=== PATIENT | female | born 1965 ===

== ENCOUNTER 2017-01-15 06:33 | Emergency (ER) | payer MEDICAID ==
[2017-01-15 06:38] VITALS: O2SAT 96
[2017-01-15] MEDS ORDERED: Oxycodone/Acetaminophen 5/325 mg Tab PO STA (07:39)
[2017-01-15] MEDS ORDERED: Lidocaine 5% Patch TD STA (07:39)
[2017-01-15] MEDS ORDERED: Lidocaine 5% Patch TD ONE (07:49)
[2017-01-15] MEDS ORDERED: Oxycodone/Acetaminophen 5/325 mg Tab ONE (07:49)
--- NOTE | 2017-01-15 07:54 | C.PDOC ---
History Of Present Illness <Prema Marcano - Last Filed: 01/15/17 12:13> <Donna Mcneillerie - Last Filed: 01/15/17 18:36> 51 yr old female presents to the ER with complaints of low back pain which radiates to right buttock and posterior right leg for the past 5 days. Patient states she was bending over to do some work when the pain started. Patient reports history of sciatica but states the pain is worse then usual. Patient denies injury or trauma, chest pain, SOB, abdominal pain, diarrhea, constipation , dysuria, incontinence, weakness or numbness. (Catarina Mcneill) <Prema Marcano - Last Filed: 01/15/17 12:13> History Per: Patient History/Exam Limitations: no limitations Onset/Duration Of Symptoms: Days (5) Current Symptoms Are (Timing): Still Present <Donna Mcneillerie - Last Filed: 01/15/17 18:36> Time Seen by Provider: 01/15/17 07:22 Chief Complaint (Nursing): Back Pain Past Medical History Reviewed: Historical Data, Nursing Documentation, Vital Signs - Medical History PMH: Arthritis, Hypercholesterolemia Family History: States: No Known Family Hx - Social History Hx Alcohol Use: Yes Hx Substance Use: No - Immunization History Hx Tetanus Toxoid Vaccination: No Hx Influenza Vaccination: No Hx Pneumococcal Vaccination: No <Donna Mcneillerie - Last Filed: 01/15/17 18:36> Vital Signs: Last Vital Signs Temp 98 F 01/15/17 11:15 Pulse 70 01/15/17 11:15 Resp 16 01/15/17 11:15 BP 137/74 01/15/17 11:15 Pulse Ox 96 01/15/17 14:34 Review Of Systems Except As Marked, All Systems Reviewed And Found Negative. Cardiovascular: Negative for: Chest Pain Respiratory: Negative for: Shortness of Breath Gastrointestinal: Negative for: Abdominal Pain, Diarrhea, Constipation Genitourinary: Negative for: Dysuria, Incontinence Musculoskeletal: Positive for: Back Pain (Low back pain ) Neurological: Negative for: Weakness, Numbness <AngelCatarina moser - Last Filed: 01/15/17 18:36> Physical Exam - Physical Exam Appears: Well, Non-toxic, No Acute Distress Skin: Warm, Dry, No Rash Head: Atraumatic, Normacephalic Neck: Normal, Normal ROM, Supple Chest: Symmetrical, No Tenderness Cardiovascular: Rhythm Regular, No Murmur Respiratory: Normal Breath Sounds, No Rales, No Rhonchi, No Wheezing Back: Straight Leg Raising (+ at 20 degree), Other ((+) Tender in the low back. ) Extremity: Tenderness (Right buttock. Posterior right leg. ), Calf Tenderness ( Mild right calf tenderness. ) Pulses: Left Dorsalis Pedis: Normal, Right Dorsalis Pedis: Normal Neurological/Psych: Oriented x3, Normal Speech, Normal Motor <Catarina Mcneill - Last Filed: 01/15/17 18:36> ED Course And Treatment - Laboratory Results Result Diagrams: 01/15/17 10:04 01/15/17 10:04 <Prema Marcano - Last Filed: 01/15/17 12:13> - Laboratory Results Result Diagrams: 01/15/17 10:04 01/15/17 10:04 O2 Sat by Pulse Oximetry: 96 (RA) Pulse Ox Interpretation: Normal - Other Rad X-Ray - LS Spine X-Ray: Viewed By Me, Read By Radiologist Interpretation: PROCEDURE: Radiographs of the Lumbar Spine. HISTORY: pain. COMPARISON: No prior. FINDINGS: BONES: Normal alignment. No listhesis. No fracture. DISC SPACES: Unremarkable. OTHER FINDINGS: A threading head type needle approximately 5 cm in length and 1 mm or less in width projects over the left lower quadrant and left iliac bone at the mid to inferior left SI joint level. The vertebral body heights are maintained. Trace endplate spurring throughout the thoracolumbar spine -visualize is noted canal appear shallow on the lateral view. Possibility of bilateral spondylolysis at L5 is not excluded based on the frontal view. No gross subluxation suggested the L5-S1 disc space is shallow. Atherosclerotic vascular calcifications are suggested at the L3-4 level. IMPRESSION: Foreign body as detailed above. No vertebral body fractures and mild degenerative changes in other findings as above. Comments: If further evaluation for the more precise position of the needle is needed and to exclude any free air ,consider CT of the abdomen and pelvis without IV or oral contrast. Follow-up recommended - CT Scan/US CT - Abd & Pelvis Other Rad Studies (CT/US): Read By Radiologist, Radiology Report Reviewed CT/US Interpretation: ADDENDUM: No evidence of definite free air or perforation. Findings discussed with ANIBAL Mcneill on 01/15/17 at 12:31 p.m. [ Addendum Report Added by Angelia Whitfield MD at 01/15/2017 12:32:05 ]. PROCEDURE: CT Abdomen and Pelvis with contrast. HISTORY: FB (needle) in the RLQ. COMPARISON: None available. TECHNIQUE: Contrast dose: 100 cc Visipaque 320. Radiation dose: Total exam DLP = 300.80 mGy-cm. This CT exam was performed using one or more of the following dose reduction techniques: Automated exposure control, adjustment of the mA and/or kV according to patient size, and/or use of iterative reconstruction technique. FINDINGS: LOWER THORAX : No visible consolidation, pleural effusion, or pneumothorax. LIVER: Hypoattenuation of the liver compatible with hepatic steatosis. GALLBLADDER AND BILE DUCTS: Unremarkable. PANCREAS: Unremarkable. SPLEEN: Unremarkable. ADRENALS: Unremarkable. KIDNEYS AND URETERS: The kidneys enhance symmetrically. No hydronephrosis or obstructing calculus identified. VASCULATURE: No aortic aneurysm. BOWEL: Stomach is nondistended. Lack of oral contrast limits evaluation for bowel pathology. Bowel loops appear within normal limits of caliber without evidence of obstruction. APPENDIX: The appendix appears within normal limits of caliber. No secondary signs of acute appendicitis. PERITONEUM: No significant free fluid. No definite free air. LYMPH NODES: No bulky adenopathy identified. BLADDER: Under distended urinary bladder limits evaluation. REPRODUCTIVE: The uterus is present. BONES : Degenerative changes. L5-S1 intervertebral disc space narrowing and vacuum disc phenomenon. OTHER FINDINGS: 4.1 x 0.3 cm linear foreign body identified within the left lower quadrant (coronal image 46). Tiny fat containing umbilical hernia. IMPRESSION: 4.1 x 0.3 cm linear radiopaque foreign body identified within the left lower quadrant. Hepatic steatosis. Additional incidental findings as above. Dopplar Other Rad Studies (CT/US): Interpreted By Me, Read By Radiologist CT/US Interpretation: Negative for DVT. <Catarina Mcneill - Last Filed: 01/15/17 18:36> Supervising Attending Note - Supervising Attending Note The Documented history was done by the: Physician Visualizer The documented physical exam was done by the: Physician Visualizer The documented procedures were done by the: Physician Visualizer - Attestation: I have personally seen and examined this patient.: Yes I have fully participated in the care of the patient.: Yes I have reviewed all pertinent clinical information: Yes <Prema Marcano - Last Filed: 01/15/17 12:13> <Donna Mcneillerie - Last Filed: 01/15/17 18:36> - Notes: Notes:: R SCIATICA PAIN SINCE 3-4 DAYS. EXAM ABOVE. LS SPINE REVIEWED BY ME +SEWING NEEDLE INTRAABD FB NOTED. CT, SURGERY (Prema Marcano) Medical Decision Making <Prema Marcano - Last Filed: 01/15/17 12:13> <Catarina Mcneill - Last Filed: 01/15/17 18:36> Medical Decision Making: PLAN: * CT - Abd & Pelvis * X-Ray - LS Spine * Dopplar * CBC * BMP * Lidoderm TD * Percocet PO * Valium PO * Toradol IM NOTE: * 12:44 - Dr. Faustin was called, states will call back shortly. * 13:26 - Patient signed out AMA. Dr. Faustin never returned the call. * 18:00 - call Dr. Faustin again, he sts patient should follow up in his office. * 18:10 - called patient cell phone ([phone]), spoke with patient, gave her contact info of Dr. Faustin and instructed her to f/u with him GOMEZ. ( Catarina Mcneill) Disposition <Prema Marcano - Last Filed: 01/15/17 12:13> - Disposition Disposition Time: 13:05 <Catarina Mcneill - Last Filed: 01/15/17 18:36> - Disposition Disposition: AGAINST MEDICAL ADVICE Condition: STABLE Additional Instructions: You are leaving against medical advise. We were unable to discuss your case with the General surgeon evaluation manager. Please follow up with your PMD as soon as possible and you will need to see general call center specialist for consultation. Return to ED immediately if feel worse. Instructions: Sciatica (ED) - Clinical Impression Clinical Impression: Sciatica, Foreign body <Prema Marcano - Last Filed: 01/15/17 12:13> - PA / CRM SPECIALIST / Resident Statement MD/DO has reviewed & agrees with the documentation as recorded. - Scribe Statement The provider has reviewed the documentation as recorded by the Scribe <Catarina Mcneill - Last Filed: 01/15/17 18:36> - Scribe Statement Sana Villalpando All medical record entries made by the Scribe were at my direction and personally dictated by me. I have reviewed the chart and agree that the record accurately reflects my personal performance of the history, physical exam, medical decision making, and the department course for this patient. I have also personally directed, reviewed, and agree with the discharge instructions and disposition. (Catarina Mcneill)
[2017-01-15 10:10] LABS: BASO # 0.2 K/uL (0.0-0.2); BASO % 1.9 % (0.0-2.0); EOS # 0.3 K/uL (0.0-0.7); EOS % 2.2 % (0.0-4.0); HEMATOCRIT 40.2 % (34.0-47.0); LYMPH # 3.1 K/uL (1.0-4.3); LYMPH % 27.3 % (20.0-40.0); MEAN CORPUSCULAR HEMOGLOBIN 29.2 pg (27.0-31.0); MEAN CORPUSCULAR HGB CONC 33.1 g/dL (33.0-37.0); MONO # 0.5 K/uL (0.0-0.8); MONO % 4.5 % (0.0-10.0); RED CELL DISTRIBUTION WIDTH 12.4 % (11.5-14.5); WHITE BLOOD COUNT 11.3 K/uL (4.8-10.8)
[2017-01-15 10:25] LABS: CHLORIDE 101 mmol/L (98-107); POTASSIUM 4.4 mmol/L (3.6-5.2); SODIUM 137 mmol/L (132-148)
[2017-01-15 10:28] LABS: BLOOD UREA NITROGEN 13 mg/dL (7-17); CARBON DIOXIDE 22 mmol/L (22-30); GFR AFRICAN-AMERICAN > 60
[2017-01-15 10:29] LABS: CALCIUM 8.2 mg/dl (8.6-10.4); GLUCOSE,RANDOM 115 mg/dL (65-105)
[2017-01-15 11:16] VITALS: BP 137/74; PULSE 70; RESP 16; TEMP 98
--- NOTE | 2017-01-15 11:24 | RAD ---
PROCEDURE: Radiographs of the Lumbar Spine. HISTORY: pain COMPARISON: No prior. FINDINGS: BONES: Normal alignment. No listhesis. No fracture. DISC SPACES: Unremarkable. OTHER FINDINGS: A threading head type needle approximately 5 cm in length and 1 mm or less in width projects over the left lower quadrant and left iliac bone at the mid to inferior left SI joint level. The vertebral body heights are maintained. Trace endplate spurring throughout the thoracolumbar spine -visualize is noted canal appear shallow on the lateral view. Possibility of bilateral spondylolysis at L5 is not excluded based on the frontal view. No gross subluxation suggested the L5-S1 disc space is shallow Atherosclerotic vascular calcifications are suggested at the L3-4 level IMPRESSION: Foreign body as detailed above. No vertebral body fractures and mild degenerative changes in other findings as above Comments: If further evaluation for the more precise position of the needle is needed and to exclude any free air ,consider CT of the abdomen and pelvis without IV or oral contrast. Follow-up recommended
[2017-01-15] MEDS ORDERED: Iodixanol 320 MG/ML 100 ML BOTTLE IV ONE (11:27)
--- NOTE | 2017-01-15 12:25 | CT ---
PROCEDURE: CT Abdomen and Pelvis with contrast HISTORY: FB (needle) in the RLQ COMPARISON: None available. TECHNIQUE: Contrast dose: 100 cc Visipaque 320 Radiation dose: Total exam DLP = 300.80 mGy-cm. This CT exam was performed using one or more of the following dose reduction techniques: Automated exposure control, adjustment of the mA and/or kV according to patient size, and/or use of iterative reconstruction technique. FINDINGS: LOWER THORAX: No visible consolidation, pleural effusion, or pneumothorax. LIVER: Hypoattenuation of the liver compatible with hepatic steatosis. GALLBLADDER AND BILE DUCTS: Unremarkable. PANCREAS: Unremarkable. SPLEEN: Unremarkable. ADRENALS: Unremarkable. KIDNEYS AND URETERS: The kidneys enhance symmetrically. No hydronephrosis or obstructing calculus identified. VASCULATURE: No aortic aneurysm. BOWEL: Stomach is nondistended. Lack of oral contrast limits evaluation for bowel pathology. Bowel loops appear within normal limits of caliber without evidence of obstruction. APPENDIX: The appendix appears within normal limits of caliber. No secondary signs of acute appendicitis. PERITONEUM: No significant free fluid. No definite free air. LYMPH NODES: No bulky adenopathy identified. BLADDER: Under distended urinary bladder limits evaluation. REPRODUCTIVE: The uterus is present. BONES: Degenerative changes. L5-S1 intervertebral disc space narrowing and vacuum disc phenomenon. OTHER FINDINGS: 4.1 x 0.3 cm linear foreign body identified within the left lower quadrant (coronal image 46). Tiny fat containing umbilical hernia. IMPRESSION: 4.1 x 0.3 cm linear radiopaque foreign body identified within the left lower quadrant. Hepatic steatosis. Additional incidental findings as above.
--- NOTE | 2017-01-15 15:19 | VASCLAB ---
PROCEDURE: Right Lower Extremity Venous Duplex Exam. HISTORY: pain PRIORS: None. TECHNIQUE: Right common femoral, femoral, popliteal and posterior tibial, peroneal and great saphenous veins were evaluated. Flow was assessed with color Doppler, compressibility, assessment of phasic flow and augmentation response. Report prepared by JOSE Toledo, RVT FINDINGS: RIGHT: 1. Common Femoral Vein: 1.1. Compressibility - Fully compressible: Thrombus - None: Flow - Phasic: Augmentation -Normal: Reflux - None. 2. Femoral Vein: 2.1. Compressibility - Fully compressible: Thrombus - None: Flow - Phasic: Augmentation -Normal: Reflux - None. 3. Popliteal Vein: 3.1. Compressibility - Fully compressible: Thrombus - None: Flow - Phasic: Augmentation -Normal: Reflux - None. 4. Posterior Tibial Vein: 4.1. Compressibility - Fully compressible: Thrombus - None: Flow - Phasic: Augmentation -Normal: Reflux - None. 5. Peroneal Vein: 5.1. Compressibility - Fully compressible: Thrombus - None: Flow - Phasic: Augmentation -Normal: Reflux - None. 6. Great Saphenous Vein: 6.1. Compressibility - Fully compressible: Thrombus -None: Flow - Phasic: Augmentation - Normal: Reflux - None. OTHER FINDINGS: IMPRESSION: No evidence of deep or superficial vein thrombosis of the right lower extremity with excellent venous flow. Normal valve function noted of the right side. Normal venous flow noted in the left common femoral vein.
== END 2017-01-15 13:26 | disposition left against medical advice (07) ==
LOC: C.ER 06:33
DX: M54.41 Lumbago with sciatica, right side (principal); T18.8XXA Foreign body in other parts of alimentary tract, initial encounter; X58.XXXA Exposure to other specified factors, initial encounter
CPT/HCPCS: 72100; 74177; 80048; 85025; 93971; 96372; 99285; J1885; Q9967

== ENCOUNTER 2017-12-15 06:50 | Emergency (ER) | payer MEDICAID ==
[2017-12-15 07:02] VITALS: BP 122/74; PULSE 76; RESP 20; TEMP 97.9; O2SAT 96
--- NOTE | 2017-12-15 07:58 | C.PDOC ---
History Of Present Illness 52 yo female come in for evaluation of Right earache gradually developed for past week. Pt admits, sx started after attempted to clean ear. Pain is localized over Right ear, non-radiating. Otherwise, pt denies fever, chills, known trauma aor injury, vertigo, dizziness, ear discharges, sore throat, drooling, dysphagia, dyspnea, neck pain, denies any other active complaints. Ambulate to Ed for evaluation, not in any apparent distress, Time Seen by Provider: 12/15/17 07:23 Chief Complaint (Nursing): ENT Problem History Per: Patient Onset/Duration Of Symptoms: Gradual Past Medical History Reviewed: Historical Data, Nursing Documentation, Vital Signs Vital Signs: Last Vital Signs Temp 97.9 F 12/15/17 06:56 Pulse 76 12/15/17 06:56 Resp 20 12/15/17 06:56 BP 122/74 12/15/17 06:56 Pulse Ox 96 12/15/17 07:58 - Medical History PMH: Arthritis, Hypercholesterolemia Family History: States: Unknown Family Hx - Social History Hx Alcohol Use: Yes Hx Substance Use: No - Immunization History Hx Tetanus Toxoid Vaccination: No Hx Influenza Vaccination: No Hx Pneumococcal Vaccination: No Review Of Systems Except As Marked, All Systems Reviewed And Found Negative. Constitutional: Negative for: Fever, Chills Eyes: Negative for: Vision Change ENT: Positive for: Ear Pain. Negative for: Ear Discharge, Nose Discharge, Nose Congestion, Throat Pain Respiratory: Negative for: Cough, Shortness of Breath, Wheezing Gastrointestinal: Negative for: Vomiting, Abdominal Pain, Diarrhea Musculoskeletal: Negative for: Neck Pain Skin: Negative for: Rash Neurological: Negative for: Altered Mental Status, Headache, Dizziness Physical Exam - Physical Exam Appears: Well, Non-toxic, No Acute Distress Skin: Normal Color, Warm, No Rash Head: Normacephalic Eye(s): bilateral: PERRL Ear(s): Left: Normal, Right: Other (cerumen impaction, unable to visulaize TM) Nose: Normal, No Flaring, No Discharge Oral Mucosa: Moist, No Drooling Throat: No Erythema, No Drooling Neck: Trachea Midline, No Midline Cervical Tenderness, No Paracervical Tenderness, No Step Off Deformity, Supple Neurological/Psych: Oriented x3, Normal Speech ED Course And Treatment O2 Sat by Pulse Oximetry: 96 Progress Note: On re-evaluation, pt is afebrile, hemodynamicaly stable. NOn- toxic. Neck: Supple, (-) meningeal sign. Right ear: cerumen removed w/ irrigation using sterile water. On re-eval of TM (+) mild bloody discharges noted, TM appears erythematous. No mastroid tenderness. Neuorlogicaly intact. After cerumen was removed, pt reports moderate improvement in pain. Abx given. Pt advised. ref. to f/U with ENT in 1-2 days for re-eval. return if any worsening or new changes. Disposition - Disposition Disposition: HOME/ ROUTINE Disposition Time: 07:55 Condition: STABLE Prescriptions: Amoxicillin/Clavulanate [Augmentin 875 MG-125 MG] 1 tab PO BID #14 tab traMADol [Ultram] 50 mg PO TID #7 tab Instructions: Ear Wax Impaction Forms: [facility] (Estonian) - Clinical Impression Clinical Impression: Cerumen impaction
== END 2017-12-15 07:23 | disposition home or self-care (01) ==
LOC: C.ER 06:50
DX: H61.21 Impacted cerumen, right ear (principal)